=== PATIENT | female | born 1955 | race Caucasian/White ===

== ENCOUNTER 2024-04-10 13:14 | Outpatient (OUT) | payer MEDICARE, OTHER, SELFPAY ==
--- NOTE | 2024-04-10 | MM_ITS ---
Patient Name: CAITY BEAN MR#: [id number] : 1955 Exam Date: 04/10/2024 Ordering Doctor: DR MAXWELL ELLIOTT M.D. RADIOLOGY REPORT PROCEDURE: MM TOMOSYNTHESIS SCREENING BI COMPARISON: MG MAMM SCREEN 3D TYESHA CAD, 04/17/2021. MG MAMM SCREEN TYESHA W CAD, 02/15/2020. INDICATIONS: Screening for malignant neoplasm of breasts Calculator Name NCI Breast Cancer Risk Assessment Tool 5 Year Breast Cancer Risk 1.20% Lifetime Breast Cancer Risk 3.70% Personal Breast Cancer No Personal Ovarian Cancer No Treatments None Family Cancers None LOCATION: [facility] BREAST COMPOSITION: There are scattered areas of fibroglandular density. FINDINGS: DIAGNOSTIC CATEGORY 2--BENIGN FINDING. NO CHANGE FROM COMPARISON. Extensive geographic microcalcifications, grossly stable but significantly limiting diagnostic sensitivity. Scattered benign-appearing lymph nodes are present. RIGHT BREAST: No significant suspicious finding. LEFT BREAST: No significant suspicious finding. RECOMMENDATIONS: ROUTINE MAMMOGRAM AND CLINICAL EVALUATION IN 12 MONTHS. PLEASE NOTE: A NORMAL MAMMOGRAM DOES NOT EXCLUDE THE POSSIBILITY OF BREAST CANCER. A CLINICALLY SUSPICIOUS PALPABLE LUMP SHOULD BE BIOPSIED. Dictated by: Erwin Nieto MD on 04/10/2024 at 14:48 Approved by: Erwin Nieto MD on 04/10/2024 at 14:49
--- NOTE | 2024-04-10 | XR_ITS ---
[address] [address] Patient Name: CAITY BEAN MRN: [id number] date: 1955 Sex: F Assigned Patient Location: [facility] Current Patient Location: Accession/Order Number: [id number] Exam Date: 04/10/2024 13:35 Report Date: 04/11/2024 06:16 At the request of: MAXWELL ELLIOTT Procedure: XR DEXA axial skeleton EXAMINATION: XR DEXA axial skeleton HISTORY: Estrogen deficiency E28.39 COMPARISON: DEXA bone densitometry 02/15/2020 TECHNIQUE: Dual-energy X-ray absorptiometry (DXA) was performed. FINDINGS: SPINE ANALYSIS: Average bone mineral density is 1.150 g/cm2. T-score (standard deviation relative to young adult mean): -0.4 . +12.7% change since prior study. HIP ANALYSIS: Lowest bone mineral density is within the left femoral neck, 0.690 g/cm2. T-score (standard deviation relative to young adult mean): -2.5 . XR/XR DEXA axial skeleton IMPRESSION: World Health Organization Classification: Osteoporosis - High Fracture Risk FRAX: Cannot be calculated. Pharmacologic treatment recommendations * No uniform recommendation applies to all patients. Management plans must be individualized. * Consider initiating pharmacologic treatment in postmenopausal women and men >= 50 years of age who have the following: Primary fracture prevention: * T-score <= - 2.5 at the femoral neck, total hip, lumbar spine, 33% radius (some uncertainty with existing data) by DXA. * Low bone mass (osteopenia: T-score between - 1.0 and - 2.5) at the femoral neck or total hip by DXA with a 10-year hip fracture risk >= 3% or a 10-year major osteoporosis-related fracture risk >= 20% (i.e., clinical vertebral, hip, forearm, or proximal humerus) based on the [place]-adapted FRAXregistered model. Secondary fracture prevention: * Fracture of the hip or vertebra regardless of BMD [4, 5]. * Fracture of proximal humerus, pelvis, or distal forearm in persons with low bone mass (osteopenia: T-score between - 1.0 and - 2.5). The decision to treat should be individualized in persons with a fracture of the proximal humerus, pelvis, or distal forearm who do not have osteopenia or low BMD [12, 13]. Ilana MS, Christian SL, Carito KL, Krishan EM, Gisselle KG, AJ, Ulises ES. The clinician's guide to prevention and treatment of osteoporosis. Osteoporos Int. 2021;33(10):3737-1037. doi: 10.1007/d86265-953-25941-k. Epub 2021Nov 23. Erratum in: Osteoporos Int. 2021Feb 22;: PMID: [id number]; PMCID: [id number]. Electronically authenticated by: GILBERT COLE Date: 04/11/2024 06:16
== END 2024-04-10 13:15 | disposition home or self-care (01) ==
LOC: MAMMO 13:14
PROVIDERS: PCP Internal Medicine; Visit Provider Internal Medicine
DX: Z12.31 Encounter for screening mammogram for malignant neoplasm of breast (principal); E28.39 Other primary ovarian failure
CPT/HCPCS: 77063; 77067; 77080